=== PATIENT | male | born 1955 | race Caucasian/White ===

== ENCOUNTER → 2018-03-21 11:31 | Outpatient (CLI) | payer OTHER, SELFPAY ==
--- NOTE | 2018-03-21 11:40 | RAD_ITS ---
STUDY: X-RAY - LUMBAR SPINE REASON FOR EXAM: Male, 62 years old. Low back pain. TECHNIQUE: 5 view(s) of the lumbar spine were obtained. COMPARISON: None FINDINGS: There is straightening of the normal lumbar lordosis. There is no substantial scoliosis. There is a normal alignment of the vertebrae. There is multilevel endplate spondylosis of the lumbar vertebrae. There is multi-level degenerative disc disease with multi-level disc space narrowing. Findings are most pronounced at L2-L3 and L4-L5. The soft tissue structures are unremarkable. RAD/L/S Spine Min 4 Views IMPRESSION: Degenerative changes. No acute abnormality. Electronically Signed: Gian Shipman MD at 19:48 EDT , Service support ,
== END ==
PROVIDERS: Family Provider Family Medicine; PCP Family Medicine; Visit Provider Family Medicine
DX: M54.5 Low back pain (principal)
CPT/HCPCS: 72110

== ENCOUNTER → 2018-11-21 09:49 | Outpatient (CLI) | payer OTHER, SELFPAY ==
[2018-11-21 12:40] LABS: AST(SGOT) 27 U/L (15-37); Alanine Aminotransfer ALT/SGPT 44 U/L (16-61); Alkaline Phosphatase 113 U/L (45-117); Anion Gap 11 (5-15); BUN 26 mg/dL (7-18); BUN/Creat Ratio 18.3 RATIO (10-20); Chloride 105 mmol/L (98-107); Creatinine, Serum 1.42 mg/dL (0.70-1.30); EST Glomerular Filtration Rate 54 mL/min (>60); Est Glom Filt Rate - Afr Amer 65 mL/min (>60); Free T3 3.3 pg/mL (2.18-3.98); Glucose 121 mg/dL (74-106); PSA,Total - Annual Screen 0.61 ng/mL (0.00-4.00); Potassium 3.7 mmol/L (3.5-5.1); Sodium Level 141 mmol/L (136-145); T4 Free Direct 1.32 ng/dL (0.76-1.46); Thyroid Stim Hormone (TSH) 1.85 uIU/mL (0.358-3.74)
--- OUTSIDE RECORDS SUMMARY | 2019-01-23 06:25 | XMS RPT_ITS ---
:1955 Author Organization OHIP Care Team Providers Name Role Phone Mathew Ochoa Attending Unavailable Mathew Ochoa Primary Care Unavailable Mathew Ochoa Attending Unavailable Mathew Ochoa Referring Unavailable Mathew Ochoa Primary Care Unavailable PROBLEMS PROBLEMS DATE TYPE CONDITION / CODE ATTENDING STATUS SOURCE 11/21/2018 Unknown V76.44 - Screening Don, Active [place] for malignant [facility] neoplasms [facility] prostate / Repository V76.44(ICD-9) 11/21/2018 Unknown Z12.5 - Encounter Sera Ochoa [place] for screening for [facility] malignant neoplasm [facility] prostate / Repository Z12.5(ICD-10) 11/21/2018 Unknown 242.90 - Don, 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 [facility] without mention of Hospital goiter or other Repository cause, and without mention of thyrotoxic crisis or storm / 242.90(ICD-9) 11/21/2018 Unknown 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, 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, [facility] unspecified without Hospital thyrotoxic crisis or Repository storm / E05.90(ICD-10) 11/21/2018 Unknown 401.9 - Unspecified Don, Active [place] essential [facility] hypertension / Hospital 401.9(ICD-9) Repository 11/21/2018 Unknown I10 - Essential Don, Active [place] (primary) [facility] hypertension / Hospital I10(ICD-10) Repository 03/21/2018 Unknown M54.5 - Low back Ranney, Active [place] pain / M54.5(ICD-10) [facility] Repository PROCEDURES PROCEDURES No Procedure Records FoundRESULTS RESULTS COMPREHENSIVE METABOLIC Collected: 11/21/2018 Status: F Source: [place] PROFIL 9:52 AM [facility] HOSPITAL REPOSITORY TYPE CODE TESTS RESULT OUT OF RANGE REFERENCE UNITS LAB L501.0100 74-106 mg/dL High GLU 121 Result Comment: Fasting Glucose result from 100 to 125 mg/dL suggests IMPAIRED HOMEOSTASIS per A.D.A. criteria. Please note revised GLUCOSE reference range effective 2017. LAB L501.1000 7-18 mg/dL High BUN 26 LAB L501.1100 0.70-1.30 mg/dL High CREAT,SERUM 1.42 Result Comment: The validity of the calculated GFR AND GFRAA in patients over 70 years has not been determined. Clinical correlation is essential. LAB L501.1110 >60 mL/min Low EST GFR 54 Result Comment: Non- GFR Calc LAB L501.1115 >60 mL/min Normal EST GFR - AA 65 Result Comment: GFR Calc LAB L501.1300 10-20 RATIO Normal BUN/CRE 18.3 LAB L501.1500 6.4-8.2 g/dL T Normal PROT 8.0 LAB L501.1800 3.2-5.0 g/dL Normal ALB 4.0 LAB L501.1950 2.2-4.2 g/dL Normal GLOB 4.0 LAB L501.2000 0.9-2.4 RATIO Normal A/G 1.0 LAB L501.2200 8.5-10.1 mg/dL CA Normal 9.0 LAB L501.4100 15-37 U/L Normal AST 27 LAB L501.4305 45-117 U/L Normal ALK P 113 LAB L501.4405 16-61 U/L Normal ALT 44 LAB L501.4600 0.20-1.00 mg/dL T Normal BILI 0.70 LAB L501.5300 136-145 mmol/L NA Normal 141 LAB L501.5600 3.5-5.1 mmol/L K Normal 3.7 LAB L501.5900 98-107 mmol/L CL Normal 105 LAB L501.6100 21.0-32.0 mmol/L Normal CO2 25.0 LAB L501.6200 5-15 Normal GAP 11 Performed By: #### L500.4050, L501.23692, L501.9520, L501.9910, L506.0400 #### [facility] [address] [place], [address] FREE T3 Collected: 11/21/2018 Status: F Source: [place] 9:52 AM [facility] REPOSITORY TYPE CODE TESTS RESULT OUT OF RANGE REFERENCE UNITS LAB L501.12893 2.18-3.98 pg/mL Normal FREE T3 3.3 Performed By: #### L500.4050, L501.15767, L501.9520, L501.9910, L506.0400 #### [facility] [address] [place], [place], [address] THYROID STIM HORMONE Collected: 11/21/2018 Status: F Source: [place] (TSH) 9:52 AM [facility] REPOSITORY TYPE CODE TESTS RESULT OUT OF RANGE REFERENCE UNITS LAB L501.9520 0.358-3.74 uIU/mL Normal TSH 1.85 Performed By: #### L500.4050, L501.70854, L501.9520, L501.9910, L506.0400 #### [facility] [address] [place], [place], [address] PSA,TOTAL - ANNUAL Collected: 11/21/2018 Status: F Source: [place] SCREEN 9:52 AM [facility] REPOSITORY TYPE CODE TESTS RESULT OUT OF RANGE REFERENCE UNITS LAB L501.9910 0.00-4.00 ng/mL Normal PSA,TOT 0.61 SCREEN Result Comment: This test was performed using the TPSA assay method for the Ufree chemistry system. Values obtained with different assay methods cannot be used interchangably. When changing PSA assays in the course of monitoring a patient, additional sequential testing should be carried out to confirm baseline values. Performed By: #### L500.4050, L501.82852, L501.9520, L501.9910, L506.0400 #### [facility] [address] [place], [address] T4 FREE DIRECT Collected: 11/21/2018 Status: F Source: [place] 9:52 AM [facility] REPOSITORY TYPE CODE TESTS RESULT OUT OF RANGE REFERENCE UNITS LAB L506.0400 0.76-1.46 ng/dL Normal T4 FREE 1.32 DIRECT Performed By: #### L500.4050, L501.75158, L501.9520, L501.9910, L506.0400 #### [facility] [address] [place], [address] HEMOGRAM Collected: 05/11/2018 Status: F Source: [facility] 12:24 PM HEALTH SYSTEM REPOSITORY TYPE CODE TESTS RESULT OUT OF REFERENCE UNITS RANGE LAB LWBC(LOINC) 4.8-10.8 thou/cmm WBC 7.2 LAB LRBC(LOINC) 4.60-6.20 mil/cmm RBC 5.13 LAB LHGB(LOINC) 14.0-18.0 g/dL Hgb 15.2 LAB LHCT(LOINC) 42.0-52.0 % Hct 45.2 LAB LMCV(LOINC) 80.0-94.0 fl MCV 88.1 LAB LMCH(LOINC) 27.0-31.0 pg MCH 29.6 LAB LMCHC(LOINC 32.0-36.0 % ) MCHC 33.6 LAB LRDW(LOINC) 11.5-15.9 % RDW 13.1 LAB LPLT(LOINC) 150-400 thou/cmm Platelet 222 LAB LMPV(LOINC) 7.1-10.5 fl MPV 10.4 Performed By: #### LCBC #### [facility] [address] [place] [address] LIPID PROFILE Collected: 05/11/2018 Status: F Source: [facility] 12:24 PM HEALTH SYSTEM REPOSITORY TYPE CODE TESTS RESULT OUT OF REFERENCE UNITS RANGE LAB LCHOL(LOIN 0-199 mg/dL C) Cholesterol Blood 186 LAB LTRIG(LOIN 0-149 mg/dL C) Triglyceride High Blood 186 LAB LHDL2(LOIN >40 mg/dL C) HDL Cholesterol 34 LAB LLDL(LOINC 0-150 mg/dL ) LDL 115 LAB LCHHD(LOIN 2.1-7.3 C) CHOL/HDL 5.5 LAB LRISK(LOIN C) Risk Factor 5.5 Result Comment: Cardiac Risk Factor The CHD risk factor is based on the total Chol/HDL ratio. Other factors affect CHD risk such as hypertension, smoking, diabetes, severe obesity and premature CHD. Cardiac Risk Total Chol/HDL ratio Men Women 1/2 avg risk 3.4-4.9 3.3-6.3 Avg risk 5.0-9.5 6.4-7.0 2x avg risk 9.6-23.3 7.1-10.9 3x avg risk >23.4 >11.0 Performed By: #### LLIPD #### [facility] [address] [place] [address] HEPATIC PANEL Collected: 05/11/2018 Status: F Source: [facility] 12:24 PM HEALTH SYSTEM REPOSITORY TYPE CODE TESTS RESULT OUT OF REFERENCE UNITS RANGE LAB LALB(LOINC 3.4-5.0 g/dL ) Albumin Blood 3.9 LAB LALT(LOINC 14-63 U/L ) ALT-SGPT Blood 38 LAB LALKP(LOIN 46-116 U/L C) Alk High Phosphatase 125 LAB LTP(LOINC) 6.4-8.2 g/dL Total High Protein 8.4 LAB LAGRT(LOIN 0.9-2.4 C) Albumin/Globulin 0.9 Ratio LAB LAST(LOINC 15-37 U/L ) AST-SGOT Blood 23 LAB LBILT(LOIN 0.2-1.0 mg/dL C) Total Bilirubin 0.5 LAB LDBIL(LOIN 0.00-0.20 mg/dL C) Direct Bilirubin 0.12 LAB LIBIL(LOIN 0.0-0.7 mg/dL C) Indirect Bilirubin 0.4 Performed By: #### LHEPA #### [facility] [address] [place] [address] BASIC PANEL Collected: 05/11/2018 Status: F Source: [facility] 12:24 PM HEALTH SYSTEM REPOSITORY TYPE CODE TESTS RESULT OUT OF REFERENCE UNITS RANGE LAB SYSTEMS INTEGRATION ENGINEER(LOINC) 136-145 mEq/L Sodium Blood 137 LAB LK(LOINC) 3.5-5.1 mEq/L Potassium Blood 3.8 LAB LCL(LOINC) 98-107 mEq/L Chloride Blood 102 LAB LCO2(LOINC 21-32 mEq/L ) CO2 Blood 28 LAB LGLU(LOINC 70-99 mg/dL ) Glucose High Blood 117 LAB LBUN(LOINC 7-25 mg/dL ) BUN Blood 19 LAB LCREA(LOIN 0.67-1.17 mg/dL C) High Creatinine Blood 1.37 LAB LCA(LOINC) 8.5-10.1 mg/dL Calcium Blood 9.0 LAB LANGP(LOIN 8-20 C) Anion Gap 11 LAB LBNCR(LOIN 10-20 C) BUN/Creatinine 14 Ratio Performed By: #### LP8 #### [facility] [address] [place] [address] MDRD EGFR Collected: 05/11/2018 Status: F Source: [facility] 12:24 PM HEALTH SYSTEM REPOSITORY TYPE CODE TESTS RESULT OUT OF RANGE REFERENCE UNITS LAB LGFRF(LOINC >60mL/min/1.73m ) 2 eGFR 56.16 Result Comment: If the patient is , multiply the result by 1.210. Performed By: #### LGFR #### [facility] [address] [place] [address] L/S SPINE MIN 4 Observed: 03/21/2018 Status: F Source: [place] VIEWS 11:41 AM [facility] REPOSITORY [facility] Imaging Services [address] [place] [address] L/S Spine Min 4 Views MR#: [id number] Acct: [id number] Name: VELASQUEZ TOVAR Rep #: [id number] : 1955 M 62 From: Gian Shipman MD PCP: Mathew Ochoa MD Status: REG CLI Study: L/S Spine Min 4 Views Date of Exam: 03/21/18 Exam# [id number] Ordering Dr: Stanley Ochoa MD STUDY: X-RAY - LUMBAR SPINE REASON FOR EXAM: Male, 62 years old. Low back pain. TECHNIQUE: 5 view(s) of the lumbar spine were obtained. COMPARISON: None FINDINGS: There is straightening of the normal lumbar lordosis. There is no substantial scoliosis. There is a normal alignment of the vertebrae. There is multilevel endplate spondylosis of the lumbar vertebrae. There is multi-level degenerative disc disease with multi-level disc space narrowing. Findings are most pronounced at L2-L3 and L4-L5. The soft tissue structures are unremarkable. RAD/L/S Spine Min 4 Views IMPRESSION: Degenerative changes. No acute abnormality. Electronically Signed: Gian Shipman MD at 19:48 EDT , Service support , CC: Mathew Ochoa MD Warehouse Laborer: Signed Observed: 01/29/2018 Status: F Source: [facility] FECAL LACTOFERRIN 1:00 PM HEALTH SYSTEM REPOSITORY Test performed at [facility] NEGATIVE for lactoferrin, which may indicate the absence of fecal white blood cells. Performed By: #### FECLA #### [facility] [address] [place] [address] Observed: 01/29/2018 Status: CANCELLED Source: [facility] FECAL LACTOFERRIN 1:00 PM HEALTH SYSTEM REPOSITORY Test performed at [facility] Observed: 01/29/2018 Status: CANCELLED Source: [facility] C. DIFFICILE BY PCR 1:00 PM HEALTH SYSTEM REPOSITORY Test performed at [facility] Observed: 01/29/2018 Status: F Source: [facility] CULT ENTERIC PATHOGENS 1:00 PM HEALTH SYSTEM REPOSITORY Test performed at [facility] No Salmonella, Shigella, Campylobacter, or E. coli 0157 cultured. Performed By: #### C_EP #### [facility] [address] [place], [place] [address] Observed: 01/29/2018 Status: F Source: [facility] OVA AND PARASITE 1:00 PM HEALTH SYSTEM SCREEN REPOSITORY Test performed at [facility] NEGATIVE for Giardia lamblia antigen. NEGATIVE for Cryptosporidium parvum antigen. If another parasite is suspected, call the Microbiology Laboratory ([phone]) to request additional parasitology testing. Performed By: #### OPS #### [facility] [address] [place] [address] MDRD EGFR Collected: 01/27/2018 Status: F Source: [facility] 10:57 AM HEALTH SYSTEM REPOSITORY TYPE CODE TESTS RESULT OUT OF RANGE REFERENCE UNITS LAB LGFRF(LOINC >60mL/min/1.73m ) 2 eGFR >60 Result Comment: If the patient is , multiply the result by 1.210. Performed By: #### LGFR #### [facility] [address] [place] [address] HEMOGRAM/DIFF Collected: 01/27/2018 Status: F Source: [facility] 9:37 AM HEALTH SYSTEM REPOSITORY TYPE CODE TESTS RESULT OUT OF REFERENCE UNITS RANGE LAB LWBC(LOINC 4.8-10.8 thou/cmm ) WBC 6.1 LAB LRBC(LOINC 4.60-6.20 mil/cmm ) RBC 5.18 LAB LHGB(LOINC 14.0-18.0 g/dL ) Hgb 15.5 LAB LHCT(LOINC 42.0-52.0 % ) Hct 44.5 LAB LMCV(LOINC 80.0-94.0 fl ) MCV 85.9 LAB LMCH(LOINC 27.0-31.0 pg ) MCH 29.9 LAB LMCHC(LOIN 32.0-36.0 % C) MCHC 34.8 LAB LRDW(LOINC 11.5-15.9 % ) RDW 12.8 LAB LPLT(LOINC 150-400 thou/cmm ) Platelet 239 LAB LMPV(LOINC 7.1-10.5 fl ) MPV 10.5 LAB LSEGT(LOIN % C) Seg Neutrophil 69.1 LAB LLYMP(LOIN % C) Lymphocyte 14.3 LAB LMNO(LOINC % ) Monocyte 12.4 LAB EVELYN(LOINC % ) Eosinophil 3.5 LAB LBASO(LOIN % C) Basophil 0.7 LAB LSEGN(LOIN 3.00-5.67 thou/cmm C) Abs. Neut 4.22 LAB LLYMN(LOIN 1.50-3.65 thou/cmm C) Low Abs. Lymph 0.87 LAB LMONN(LOIN 0.20-1.00 thou/cmm C) Abs. Pleas[place] 0.76 LAB LEOSN(LOIN 0.00-0.41 thou/cmm C) Abs. Eosin 0.21 LAB LBASN(LOIN 0.00-0.08 thou/cmm C) Abs. Baso 0.04 Performed By: #### LCBCD #### [place] [address] COMPREHENSIVE PANEL Collected: 01/27/2018 Status: F Source: [facility] 9:37 AM HEALTH SYSTEM REPOSITORY TYPE CODE TESTS RESULT OUT OF REFERENCE UNITS RANGE LAB SYSTEMS INTEGRATION ENGINEER(LOINC) 136-145 mEq/L Sodium Blood 137 LAB LK(LOINC) 3.5-5.1 mEq/L Low Potassium Blood 3.2 LAB LCL(LOINC) 98-107 mEq/L Chloride Blood 103 LAB LCO2(LOINC 21-32 mEq/L ) CO2 Blood 29 LAB LGLU(LOINC 70-99 mg/dL ) Glucose High Blood 102 LAB LBUN(LOINC 7-25 mg/dL ) BUN Blood 15 LAB LCREA(LOIN 0.67-1.17 mg/dL C) Creatinine High Blood 1.24 LAB LCA(LOINC) 8.5-10.1 mg/dL Calcium Blood 8.7 LAB LALB(LOINC 3.4-5.0 g/dL ) Albumin Blood 3.6 LAB LTP(LOINC) 6.4-8.2 g/dL Total Protein 7.6 LAB LAST(LOINC 15-37 U/L ) AST-SGOT Blood 23 LAB LALT(LOINC 14-63 U/L ) ALT-SGPT Blood 32 LAB LALKP(LOIN 46-116 U/L C) Alk High Phosphatase 139 LAB LBILT(LOIN 0.2-1.0 mg/dL C) Total Bilirubin 0.9 LAB LANGP(LOIN 8-20 C) Anion Gap 9 LAB LBNCR(LOIN 10-20 C) BUN/Creatinine 12 Ratio Performed By: #### LP14 #### [place] [address] ALLERGIES ALLERGIES No Allergies Records FoundENCOUNTERS ENCOUNTERS ADMIT/DISCHARGE ACCOUNT ADMITTING ENCOUNTER LOCATION SOURCE NUMBER CLASS 11/21/2018 [id number] [place] [facility] ing:MFPLAB Repository 03/21/2018 [id number] [place] [facility] ing:MTRAD Repository PAYERS PAYERS ENCOUNTER GUARANTOR PAYER SUBSCRIBER SOURCE 11/21/2018 VELASQUEZ L Primary VELASQUEZ L [place] [id number] Insurance:MEDICAL GEISSMANDOB: [facility] [place] [facility] [id number] Number: Repository [id number]: 330 [id number] [phone] () Date:[id number] [address] [place] [id number]: 11/21/2018 Secondary NOT GIVENUNK [place] Insurance:SELF PAY [facility] Number: Effective Repository Date:2018-11-21 03/21/2018 VELASQUEZ L Primary VELASQUEZ L [place] [id number] Insurance:MEDICAL GEISSMANDOB: [facility] [place] [facility] [id number] Number: Repository [id number]: [phone] [id number] [phone] () Date:[id number] [address] [place] [id number]: 03/21/2018 Secondary NOT GIVENUNK [place] Insurance:SELF PAY [facility] Number: Effective Repository Date:2018-03-21
== END ==
PROVIDERS: Family Provider Family Medicine; PCP Family Medicine; Visit Provider Family Medicine
DX: E05.90 Thyrotoxicosis, unspecified without thyrotoxic crisis or storm (principal); I10 Essential (primary) hypertension; Z12.5 Encounter for screening for malignant neoplasm of prostate
CPT/HCPCS: 36415; 80053; 84153; 84439; 84443; 84481; G0103

== ENCOUNTER → 2019-11-25 09:55 | Outpatient (CLI) | payer OTHER, SELFPAY ==
[2019-11-25 12:46] LABS: ALB/GLOB Ratio 0.9 RATIO (0.9-2.4); AST(SGOT) 21 U/L (15-37); Alanine Aminotransfer ALT/SGPT 43 U/L (16-61); Albumin, Serum 3.5 g/dL (3.2-5.0); Alkaline Phosphatase 132 U/L (45-117); Anion Gap 3 (5-15); BUN 21 mg/dL (7-18); BUN/Creat Ratio 14.9 RATIO (10-20); Calcium,Total 8.9 mg/dL (8.5-10.1); Chloride 104 mmol/L (98-107); Creatinine, Serum 1.41 mg/dL (0.70-1.30); EST Glomerular Filtration Rate 54 mL/min (>60); Est Glom Filt Rate - Afr Amer 65 mL/min (>60); Globulin 4.1 g/dL (2.2-4.2); Glucose 109 mg/dL (74-106); PSA,Total - Annual Screen 0.52 ng/mL (0.00-4.00); Potassium 3.7 mmol/L (3.5-5.1); Protein, Total 7.6 g/dL (6.4-8.2); Sodium Level 138 mmol/L (136-145); Thyroid Stim Hormone (TSH) 3.84 uIU/mL (0.358-3.74)
== END ==
PROVIDERS: PCP Family Medicine; Referring Provider Family Medicine; Visit Provider Family Medicine
DX: I48.91 Unspecified atrial fibrillation (principal); R73.01 Impaired fasting glucose; Z12.5 Encounter for screening for malignant neoplasm of prostate
CPT/HCPCS: 36415; 80053; 84153; 84443; G0103

== ENCOUNTER → 2024-04-29 | Outpatient (CLI) | payer MEDICARE, SELFPAY ==
[2024-04-29 17:52] LABS: Absolute Lymphocyte Count 0.81 X10^3/uL (0.83-4.51); Absolute Neutrophil Count 4.9 X10^3/uL (2.0-7.7); Basophil# 0.03 X10^3/uL; Basophil% 0.4 % (0-1); Eosinophil# 0.13 X10^3/uL; Eosinophils% 1.9 % (0-5); Hematocrit 41.9 % (40-54); Hemoglobin 13.8 g/dL (13.0-16.5); Lymphocyte # 0.81 X10^3/ul (0.83-4.51); Lymphocyte % 12.1 % (19-41); Mean Corp Hgb Conc 32.9 g/dL (32-36); Mean Corpuscular Hgb 29.7 pg (27.0-32.0); Mean Corpuscular Volume 90.3 fL (80-94); Mean Platelet Vol. 10.7 fl (6.2-12.0); NRBC Flagged by Analyzer 0 % (0-5); Neutrophil # 4.88 X10^3/uL (2.7-7.7); Neutrophil % 73.3 % (47-70); Platelet Count 213 K/mm3 (150-450); RBC Distribution Width CV 12.6 % (11.6-14.6); RBC Distribution Width SD 41.8 fl (35.1-43.9); Red Blood Count 4.64 M/mm3 (4.6-6.2); White Blood Count 6.7 K/mm3 (4.4-11.0)
[2024-04-29 18:23] LABS: AST(SGOT) 23 U/L (15-37); Alanine Aminotransfer ALT/SGPT 30 U/L (16-61); Albumin, Serum 3.7 g/dL (3.2-5.0); Alkaline Phosphatase 117 U/L (45-117); Anion Gap 7 (5-15); BUN 24 mg/dL (7-18); Calcium,Total 9.1 mg/dL (8.5-10.1); Chloride 109 mmol/L (98-107); Creatinine, Serum 1.33 mg/dL (0.70-1.30); EST Glomerular Filtration Rate 57 mL/min (>60); Est Glom Filt Rate - Afr Amer 69 mL/min (>60); Globulin 3.8 g/dL (2.2-4.2); Glucose 115 mg/dL (74-106); Potassium 3.6 mmol/L (3.5-5.1); Protein, Total 7.5 g/dL (6.4-8.2); Sodium Level 142 mmol/L (136-145); Thyroid Stim Hormone (TSH) 1.95 uIU/mL (0.358-3.74)
== END | disposition home or self-care (01) ==
PROVIDERS: PCP Family Medicine; Visit Provider Family Medicine
DX: M79.671 Pain in right foot (principal); E78.5 Hyperlipidemia, unspecified
CPT/HCPCS: 36415; 80053; 84443; 85025

== ENCOUNTER → 2024-04-30 | Outpatient (CLI) | payer MEDICARE, SELFPAY ==
--- NOTE | 2024-04-30 10:43 | VDLE_ITS ---
Reason For Study: Rt Leg Swelling RIGHT LEFT GSV is normal. CFV is compressible, spontaneous, phasic, CFV is compressible, spontaneous, phasic, competent, and demonstrates normal competent and demonstrates normal augmentation. augmentation. FV is compressible, spontaneous, phasic, competent and demonstrates normal augmentation. POP V is compressible, spontaneous, phasic, competent and demonstrates normal augmentation. T/P Trunk is compressible. PTV is compressible. RT PerV is compressible. Procedure This is a venous duplex using B-mode, color flow and spectral Doppler. Exam performed in department. The exam was diagnostic. A preliminary report was called and/or faxed to [facility]. VL/Venous Duplex US, Unilateral Interpretation Summary Deep veins of the right lower extremity are patent and compressible segmentally . There is no evidence of right lower extremity deep vein thrombosis. Valvular competence alexandro ears intact within the proximal deep venous system on the right . The right great saphenous vein a ppears patent and compressible segmentally. The left common femoral vein is patent and compressib le . Ordering Physician: Mathew Ochoa Referring Physician: Mathew Ochoa Performed By: Danny Aquino RVT and Student
== END | disposition home or self-care (01) ==
PROVIDERS: PCP Family Medicine; Referring Provider Family Medicine; Visit Provider Family Medicine
DX: M79.89 Other specified soft tissue disorders (principal)
CPT/HCPCS: 93971

== ENCOUNTER → 2024-05-03 | Outpatient (CLI) | payer MEDICARE, SELFPAY ==
[2024-05-03 15:25] LABS: BNP,B-Type NATRIURETIC PEPTIDE 27.5 pg/mL (0-100)
== END | disposition home or self-care (01) ==
LOC: MTLAB 12:34
PROVIDERS: PCP Family Medicine; Referring Provider Family Medicine; Visit Provider Family Medicine
DX: I10 Essential (primary) hypertension (principal)
CPT/HCPCS: 36415; 83880

== ENCOUNTER → 2024-06-05 | Outpatient (CLI) | payer MEDICARE, SELFPAY ==
--- NOTE | 2024-06-05 12:51 | ECHOD_ITS ---
Reason For Study: AFIB Procedure This was a 2D Doppler, Color Flow transthoracic echocardiogram. Exam performed in department. Left Ventricle Normal LV size. The estimated ejection fraction is 60 %. Right Ventricle Normal RV size. Normal systolic function. Atria The left and right atria are normal. No doppler evidence for ASD. Bubble contrast study negative for right to left interatrial shunt. Mitral Valve There is no mitral valve stenosis. Trivial mitral valve insufficiency. Tricuspid Valve There is no tricuspid stenosis. Trivial tricuspid valve insufficiency. Pulmonary artery systolic pressure is 25 mmHg. Aortic Valve Trisinus/trileaflet aortic valve. There is no aortic stenosis. No aortic valve insufficiency. Pulmonic Valve There is no pulmonic valvular stenosis. No pulmonic valve insufficiency. Great Vessels Normal aortic root. Pericardium/Pleural No pericardial effusion. Medication 22 gauge I.V. with prn adaptor inserted into right arm. Performed a rapid injection of agitated mix of 9 cc saline and 1cc air to assess for atrial septal defect. MMode/2D Measurements & Calculations LVIDd: 4.9 cm IVSd: 1.0 cm Ao root diam: 3.6 cm LVIDs: 3.2 cm LVPWd: 0.95 cm RVDd: 3.9 cm FS: 35.1 % LAV(MOD-bp): 55.1 ml LVAd ap4: 37.5 cm2 SV(MOD-sp4): 84.6 ml LAV(MOD-bp) Indexed: 23.2 ml/m2 LVLd ap4: 8.7 cm LAV(MOD-sp2): 52.0 ml EDV(MOD-sp4): 132.8 ml LAV(MOD-sp4): 53.1 ml EDV(sp4-el): 137.2 ml LVAs ap4: 20.5 cm2 LVLs ap4: 7.3 cm ESV(MOD-sp4): 48.2 ml ESV(sp4-el): 48.8 ml EF(MOD-sp4): 63.7 % EF(sp4-el): 64.4 % SV(sp4-el): 88.3 ml LA A4 area: 20.0 cm2 LA dimension(2D): 3.8 cm RA A4 area: 17.1 cm2 TAPSE: 2.6 cm Time Measurements MV dec time: 0.22 sec Doppler Measurements & Calculations MV E max rachid: 64.3 cm/sec Lat Peak E' Rachid: 17.1 cm/sec Med Peak E' Rachid: 10.3 cm/sec MV A max rachid: 63.0 cm/sec E/E' lat: 3.8 E/E' med: 6.3 MV E/A: 1.0 Ao V2 max: 132.9 cm/sec LV V1 max: 112.3 cm/sec PA V2 max: 92.1 cm/sec Ao max P.1 mmHg LV V1 max P.0 mmHg TR max rachid: 228.3 cm/sec TR max P.8 mmHg ECHO/Echo Complete Interpretation Summary The estimated ejection fraction is 60 %. Trivial mitral valve insufficiency. Ordering Physician: Mathew Ochoa Referring Physician: Mathew Ochoa Performed By: Chelsie Garcia RDCS
== END | disposition home or self-care (01) ==
PROVIDERS: PCP Family Medicine; Referring Provider Family Medicine; Visit Provider Family Medicine
DX: R94.31 Abnormal electrocardiogram [ECG] [EKG] (principal); I48.91 Unspecified atrial fibrillation
CPT/HCPCS: 93306; A4216